=== PATIENT | female | born 2000 | race Caucasian/White ===

== ENCOUNTER 2025-05-28 12:50 | Emergency (ER) | payer OTHER ==
[2025-05-28 12:56] VITALS: TEMP 98.4
--- NOTE | 2025-05-28 13:19 | ED ---
Lower Extremity Injury HPI - General Chief Complaint: Extremity Injury, Lower Stated Complaint: [facility] knee injury Time Seen by Provider: 05/28/25 13:15 Source: patient, RN notes reviewed Mode of arrival: ambulatory Limitations: no limitations - History of Present Illness Initial Comments: 24-year-old female presenting for right knee injury 1 hour ago. States she was at work when she attempted to perform a cart wheel. States one of the children bumped into her and she landed wrong on her right foot, causing immediate pain in her right knee. States she is not able to bear any weight. Reports there is a constant pain located inside of her knee and radiates superiorly and inferiorly. No other injuries. - Related Data Home Medications Medication Instructions Recorded Confirmed ARIPiprazole [Abilify] 2.5 tab PO DAILY 12/21/14 03/01/15 Allergies Allergy/AdvReac Type Severity Reaction Status Date / Time No Known Allergies Allergy Verified 05/28/25 12:56 Review of Systems ROS Statement: Those systems with pertinent positive or pertinent negative responses have been documented in the HPI. ROS Other: All systems not noted in ROS Statement are negative. Past Medical History Past Medical History: No Reported History History of Any Multi-Drug Resistant Organisms: None Reported Additional Past Surgical History / Comment(s): eye Past Psychological History: Anxiety, Bipolar, Depression, Schizophrenia Smoking Status: Vaper Past Alcohol Use History: Occasional Past Drug Use History: Marijuana General Exam Limitations: no limitations General appearance: alert, in no apparent distress Head exam: Present: atraumatic, normocephalic, normal inspection Eye exam: Present: normal appearance, PERRL, EOMI. Absent: scleral icterus, conjunctival injection, periorbital swelling ENT exam: Present: normal exam, mucous membranes moist Neck exam: Present: normal inspection. Absent: tenderness, meningismus, lymphadenopathy Right Upper Leg exam: Present: normal inspection, full ROM. Absent: tenderness, swelling Knee exam: Present: normal inspection, tenderness (Point tenderness located anteriorly and laterally), swelling, pain/laxity with varus. Absent: full ROM (Limited flexion extension due to pain), abrasion, laceration, dislocation, erythema, pain/laxity with valgus Lower Leg exam: Present: normal inspection, full ROM. Absent: tenderness, swelling Ankle exam: Present: normal inspection, full ROM. Absent: tenderness, swelling Foot/Toe exam: Present: normal inspection, full ROM. Absent: tenderness, swelling Neurovascular tendon exam: Present: no vascular compromise. Absent: pulse deficit, abnormal cap refill, motor deficit Neurological exam: Present: alert, oriented X3 Skin exam: Present: warm, dry, intact, normal color. Absent: rash Course Vital Signs 05/28/25 12:54 Temperature 98.4 F Pulse Rate 87 Respiratory 20 Rate Blood Pressure 150/88 O2 Sat by Pulse 100 Oximetry Medical Decision Making - Medical Decision Making Was pt. sent in by a medical professional or institution (, PA, VICE PRESIDENT OF CONSULTING SERVICES, urgent care, hospital, or senior living...) When possible be specific @ -No Did you speak to anyone other than the patient for history (EMS, parent, family, police, friend...)? What history was obtained from this source @ -No Did you review nursing and triage notes (agree or disagree)? Why? @ -I reviewed and agree with nursing and triage notes Were old charts reviewed (outside hosp., previous admission, EMS record, old EKG, old radiological studies, urgent care reports/EKG's, senior living records)? Report findings @ -No old charts were reviewed Differential Diagnosis (chest pain, altered mental status, abdominal pain women, abdominal pain men, vaginal bleeding, weakness, fever, dyspnea, syncope, heada janet, dizziness, GI bleed, back pain, seizure, CVA, palpatations, mental health, musculoskeletal)? @ -Differential Musculoskeletal Muscular strain, contusion, ligament sprain, fracture, arthritis, septic arthritis, bursitis, cellulitis, muscle spasm, nerve compression, DVT, arterial occlusion, herpes zoster, electrolyte abnormality, tumor.... This is not meant to be in all inclusive list EKG interpreted by me (3pts min.). @ -None X-rays interpreted by me (1pt min.). @ -X-ray right knee reveals no acute fracture or dislocation CT interpreted by me (1pt min.). @ -None done U/S interpreted by me (1pt. min.). @ -None done What testing was considered but not performed or refused? (CT, X-rays, U/S, labs)? Why? @ -None What meds were considered but not given or refused? Why? @ -None Did you discuss the management of the patient with other professionals (professionals i.e. , PA, VICE PRESIDENT OF CONSULTING SERVICES, lab, RT, psych nurse, social work administrator, blow molding machine operator, teacher, workers' compensation hearings officer, adult protective caseworker)? Give summary @ -No Was smoking cessation discussed for >3mins.? @ -No Was critical care preformed (if so, how long)? @ -No Were there social determinants of health that impacted care today? How? (Homelessness, low income, unemployed, alcoholism, drug addiction, transportation, low edu. Level, literacy, decrease access to med. care, assisted, rehab)? @ -No Was there de-escalation of care discussed even if they declined (Discuss DNR or withdrawal of care, Hospice)? DNR status @ -No What co-morbidities impacted this encounter? (DM, HTN, Smoking, COPD, CAD, Cancer, CVA, ARF, Chemo, Hep., AIDS, mental health diagnosis, sleep apnea, morbid obesity)? @ -None Was patient admitted / discharged? Hospital course, mention meds given and route, prescriptions, significant lab abnormalities, going to OR and other pertinent info. @ -Discharged. 24-year-old female presenting for right knee injury 1 hour ago. She is unable to bear weight. Minimal range of motion due to pain. Provided with Toradol injection and ice pack was applied for supportive care. DP pulses present and equal in bilateral lower extremities. X-ray right knee reveals no acute fracture or dislocation. Results discussed with patient. Discussed diagnosis of right knee sprain. Patient was provided with a knee immobilizer and patient states she has crutches she will use at home. Advised orthopedic follow-up. Appropriate return precautions and supportive care discussed. Case was discussed with my ED attending Dr. Martinez. Undiagnosed new problem with uncertain prognosis? @ -No Drug Therapy requiring intensive monitoring for toxicity (Heparin, Nitro, Insulin, Cardizem)? @ -No Were any procedures done? @ -No Diagnosis/symptom? @ -Right knee sprain Acute, or Chronic, or Acute on Chronic? @ -Acute Uncomplicated (without systemic symptoms) or Complicated (systemic symptoms)? @ -Uncomplicated Side effects of treatment? @ -No Exacerbation, Progression, or Severe Exacerbation? @ -No Poses a threat to life or bodily function? How? (Chest pain, USA, DC, pneumonia, PE, COPD, DKA, ARF, appy, cholecystitis, CVA, Diverticulitis, Homicidal, Suicidal, threat to staff... and all critical care pts) @ -No Disposition Clinical Impression: Right knee sprain Disposition: HOME SELF-CARE Condition: Stable Instructions (If sedation given, give patient instructions): Knee Sprain (ED) Additional Instructions: Use the knee immobilizer and crutches as discussed. Please follow-up with orthopedics tomorrow. Please return to the Emergency Department if symptoms worsen or any other concerns. Is patient prescribed a controlled substance at d/c from ED?: No Referrals: [facility] [NON-STAFF] - 1-2 days [facility] [NON-STAFF] - 1-2 days None,Stated [Primary Care Provider] - 1-2 days Pablito Naranjo DO [Doctor of Osteopathic Medicine] - 1-2 days Forms: PH Area PCPs Time of Disposition: 14:28
[2025-05-28] MEDS: KETOROLAC 15 MG/ML 1 ML VIAL IM STA (13:24)
--- NOTE | 2025-05-28 14:15 | XR ---
EXAMINATION TYPE: XR knee complete RT DATE OF EXAM: 05/28/2025 2:10 PM COMPARISON: None. CLINICAL INDICATION: Female, 24 years old with history of right knee injury, pain TECHNIQUE: XR knee complete RT views were obtained FINDINGS: There is no acute fracture/dislocation. The tri-compartment joint spaces appear within no rmal limits. The overlying soft tissue appears unremarkable. IMPRESSION: There is no acute fracture or dislocation.ICD 10 NO FRACTURE, INITIAL EVALUATION [facility], , 05/28/2025 2:12 PM
[2025-05-28 14:44] VITALS: BP 122/70; PULSE 70; RESP 18
== END 2025-05-28 14:43 | disposition home or self-care (01) ==
LOC: EC 12:50
DX: S83.91XA Sprain of unspecified site of right knee, initial encounter (principal); F17.290 Nicotine dependence, other tobacco product, uncomplicated; W50.0XXA Accidental hit or strike by another person, initial encounter
CPT/HCPCS: 73562; 99283; 96372; J1885